=== PATIENT | female | born 1960 | race American Indian/Alaskan Native ===

== ENCOUNTER 2018-03-01 18:07 | Emergency (ER) | payer SELFPAY ==
[2018-03-01] MEDS ORDERED: TORADOL IM ONE (19:52)
--- NOTE | 2018-03-01 19:56 | Emergency Department Report ---
ED ENT HPI - General Chief complaint: Earache Stated complaint: EAR AND TOOTH PAIN Time Seen by Provider: 03/01/18 19:28 Source: patient Mode of arrival: Ambulatory Limitations: No Limitations - History of Present Illness Initial comments: This is a 57-year-old male nontoxic, well nourished in appearance, no acute signs of distress presents to the ED with c/o of right earache and left lower toothache 4 days. Patient denies following up with a dentist. Patient stated that pain radiates from his job to his right ear region. Patient otherwise denies any head trauma. Patient describes toothache as aching level of 8 out of 10. Patient denies any facial swelling. Patient denies any numbness, tingling, fever, chills, headache, stiff neck, abdominal pain, chest pain, shortness of breath. Patient denies any drug allergies or significant past medical history. MD complaint: tooth pain -: days(s) (4) Location: tooth # 1 - pain Severity: mild Quality: aching Consistency: constant Improves with: none Worsens with: none Context- Dental: history of dental caries, poor dental care Associated Symptoms: gum swelling, toothache. denies: fever, cough, pain with swallowing, sore throat, tinnitus, hearing loss, discharge from ear, rhinorrhea - Related Data Previous Rx's Medication Instructions Recorded Last Taken Type Ibuprofen [Motrin] 600 mg PO Q8H PRN #60 tablet 04/22/14 Unknown Rx Cyclobenzaprine [Flexeril 10 MG 10 mg PO TID PRN #30 tablet 05/31/15 Unknown Rx TAB] Docusate Sodium [Colace CAP] 100 mg PO BID #60 capsule 05/31/15 Unknown Rx HYDROcodone/APAP 7.5-325 [[place] 1 each PO Q6HR PRN #20 tablet 05/31/15 Unknown Rx 7.5-325 mg TAB] Sulfamethoxazole/Trimethoprim 1 each PO BID #14 tablet 05/31/15 Unknown Rx [Bactrim DS TAB] metroNIDAZOLE 0.75%(NF) [Metrogel 1 applicatio TP QHS #5 tube 10/28/15 Unknown Rx 0.75% TOPICAL] Amoxicillin/K Clav Tab [Augmentin 1 tab PO Q12HR #20 tab 03/01/18 Unknown Rx 875 mg] Chlorhexidine Mouthwash [Peridex] 15 ml MM BID #1 bottle 03/01/18 Unknown Rx Ibuprofen [Motrin] 600 mg PO Q8H PRN #30 tablet 03/01/18 Unknown Rx traMADol [Ultram] 50 mg PO Q6HR PRN #15 tablet 03/01/18 Unknown Rx Allergies Allergy/AdvReac Type Severity Reaction Status Date / Time No Known Allergies Allergy Unverified 04/22/14 14:48 ED Dental HPI - General Chief complaint: Earache Stated complaint: EAR AND TOOTH PAIN Time Seen by Provider: 03/01/18 19:28 Source: patient Mode of arrival: Ambulatory Limitations: No Limitations - Related Data Previous Rx's Medication Instructions Recorded Last Taken Type Ibuprofen [Motrin] 600 mg PO Q8H PRN #60 tablet 04/22/14 Unknown Rx Cyclobenzaprine [Flexeril 10 MG 10 mg PO TID PRN #30 tablet 05/31/15 Unknown Rx TAB] Docusate Sodium [Colace CAP] 100 mg PO BID #60 capsule 05/31/15 Unknown Rx HYDROcodone/APAP 7.5-325 [[place] 1 each PO Q6HR PRN #20 tablet 05/31/15 Unknown Rx 7.5-325 mg TAB] Sulfamethoxazole/Trimethoprim 1 each PO BID #14 tablet 05/31/15 Unknown Rx [Bactrim DS TAB] metroNIDAZOLE 0.75%(NF) [Metrogel 1 applicatio TP QHS #5 tube 10/28/15 Unknown Rx 0.75% TOPICAL] Amoxicillin/K Clav Tab [Augmentin 1 tab PO Q12HR #20 tab 03/01/18 Unknown Rx 875 mg] Chlorhexidine Mouthwash [Peridex] 15 ml MM BID #1 bottle 03/01/18 Unknown Rx Ibuprofen [Motrin] 600 mg PO Q8H PRN #30 tablet 03/01/18 Unknown Rx traMADol [Ultram] 50 mg PO Q6HR PRN #15 tablet 03/01/18 Unknown Rx Allergies Allergy/AdvReac Type Severity Reaction Status Date / Time No Known Allergies Allergy Unverified 04/22/14 14:48 ED Review of Systems ROS: Stated complaint: EAR AND TOOTH PAIN Other details as noted in HPI Constitutional: denies: chills, fever Eyes: denies: eye pain, eye discharge, vision change ENT: ear pain, dental pain. denies: throat pain Respiratory: denies: cough, shortness of breath, wheezing Cardiovascular: denies: chest pain, palpitations Endocrine: no symptoms reported Gastrointestinal: denies: abdominal pain, nausea, diarrhea Genitourinary: denies: urgency, dysuria, discharge Musculoskeletal: denies: back pain, joint swelling, arthralgia Skin: denies: rash, lesions Neurological: denies: headache, weakness, paresthesias Psychiatric: denies: anxiety, depression Hematological/Lymphatic: denies: easy bleeding, easy bruising ED Past Medical Hx - Past Medical History Previous Medical History?: Yes Additional medical history: chronic back pain - Surgical History Past Surgical History?: Yes Additional Surgical History: c section, hands surgeries. - Social History Smoking Status: Never Smoker Substance Use Type: Non Opiate Pain - Medications Home Medications: Home Medications Medication Instructions Recorded Confirmed Last Taken Type Ibuprofen [Motrin] 600 mg PO Q8H PRN #60 tablet 04/22/14 Unknown Rx Cyclobenzaprine [Flexeril 10 MG 10 mg PO TID PRN #30 tablet 05/31/15 Unknown Rx TAB] Docusate Sodium [Colace CAP] 100 mg PO BID #60 capsule 05/31/15 Unknown Rx HYDROcodone/APAP 7.5-325 [[place] 1 each PO Q6HR PRN #20 tablet 05/31/15 Unknown Rx 7.5-325 mg TAB] Sulfamethoxazole/Trimethoprim 1 each PO BID #14 tablet 05/31/15 Unknown Rx [Bactrim DS TAB] metroNIDAZOLE 0.75%(NF) [Metrogel 1 applicatio TP QHS #5 tube 10/28/15 Unknown Rx 0.75% TOPICAL] Amoxicillin/K Clav Tab [Augmentin 1 tab PO Q12HR #20 tab 03/01/18 Unknown Rx 875 mg] Chlorhexidine Mouthwash [Peridex] 15 ml MM BID #1 bottle 03/01/18 Unknown Rx Ibuprofen [Motrin] 600 mg PO Q8H PRN #30 tablet 03/01/18 Unknown Rx traMADol [Ultram] 50 mg PO Q6HR PRN #15 tablet 03/01/18 Unknown Rx ED Physical Exam - General Limitations: No Limitations General appearance: alert, in no apparent distress - Head Head exam: Present: atraumatic, normocephalic - Eye Eye exam: Present: normal appearance, PERRL, EOMI - ENT ENT exam: Present: mucous membranes moist, TM's normal bilaterally, normal external ear exam - Expanded ENT Exam Expanded Ear exam: Present: normal external inspection Mouth exam: Present: normal external inspection, tongue normal. Absent: drooling, trismus, muffled voice, tongue elevation, laceration Teeth exam: Present: dental caries, fractured tooth #, dental tenderness #, gingival enlargement, other (No facial swelling. ) 1 - Fractured, Dental Tenderness Throat exam: Positive: normal inspection, other (Uvula midline. No abscess or swelling noted. ). Negative: tonsillar erythema, tonsillomegaly, tonsillar exudate, R peritonsillar mass, L peritonsillar mass - Neck Neck exam: Present: normal inspection, full ROM. Absent: tenderness, meningismus, lymphadenopathy - Respiratory Respiratory exam: Present: normal lung sounds bilaterally. Absent: respiratory distress, wheezes, rales, rhonchi, stridor - Cardiovascular Cardiovascular Exam: Present: regular rate, normal rhythm, normal heart sounds. Absent: irregular rhythm, systolic murmur, diastolic murmur, rubs, gallop - GI/Abdominal GI/Abdominal exam: Present: soft, normal bowel sounds - Extremities Exam Extremities exam: Present: normal inspection - Back Exam Back exam: Present: normal inspection, full ROM - Neurological Exam Neurological exam: Present: alert, oriented X3, normal gait - Psychiatric Psychiatric exam: Present: normal affect, normal mood - Skin Skin exam: Present: warm, dry, intact, normal color. Absent: rash ED Course Vital Signs 03/01/18 18:12 Temperature 99.2 F Pulse Rate 103 H Respiratory 20 Rate Blood Pressure 152/75 O2 Sat by Pulse 98 Oximetry - Reevaluation(s) Reevaluation #1: 03/01/18 19:56 Patient is speaking in full sentences with no signs of distress noted. Critical care attestation.: If time is entered above; I have spent that time in minutes in the direct care of this critically ill patient, excluding procedure time. ED Disposition Clinical Impression: Dental caries, Gingivitis Disposition: TO HOME OR SELFCARE Is pt being admited?: No Does the pt Need Aspirin: No Condition: Stable Instructions: Dental Caries (ED), Gingivitis (ED), Tramadol (By mouth), Amoxicillin/Clavulanate Potassium (By mouth) Additional Instructions: Follow-up with a dentist in 3-5 days or if symptoms worsen and continue return to emergency room as soon as possible. Prescriptions: Amoxicillin/K Clav Tab [Augmentin 875 mg] 1 tab PO Q12HR #20 tab Chlorhexidine Mouthwash [Peridex] 15 ml MM BID #1 bottle Ibuprofen [Motrin] 600 mg PO Q8H PRN #30 tablet PRN Reason: Pain traMADol [Ultram] 50 mg PO Q6HR PRN #15 tablet PRN Reason: Pain Referrals: SAM ADDISON MD [Staff Physician] - 3-5 Days PRIMARY CARE, [Referring] - 3-5 Days [facility] [Outside] - 3-5 Days Forms: Work/School Release Form(ED)
[2018-03-01 20:19] VITALS: BP 130/83
== END 2018-03-01 20:17 | disposition home or self-care (01) ==
LOC: ED 18:07
DX: K05.10 Chronic gingivitis, plaque induced (principal)
CPT/HCPCS: 96372; 99282; J1885

== ENCOUNTER 2018-11-09 11:13 | Emergency (ER) | payer SELFPAY ==
[2018-11-09 11:25] VITALS: BP 131/74
--- NOTE | 2018-11-09 13:34 | Emergency Department Report ---
ED Abdominal Pain HPI - General Chief Complaint: Abdominal Pain Stated Complaint: ABD PAIN Time Seen by Provider: 11/09/18 13:13 Source: patient Mode of arrival: Ambulatory Limitations: No Limitations - History of Present Illness Initial Comments: Mrs. Ashley is a very pleasant healthy 58-year-old female without significant past medical history who presents with pelvic suprapubic cramping for the past 6 weeks. Pain has been worse mainly after sexual intercourse. She was concerned for possible urinary tract infection. Symptoms improved with cranberry juice and vinegar. However after intercourse the symptoms returned. She denies vaginal discharge. She denies fever. She's had normal Pap smear within the last year. She has had irregular vaginal bleeding for the last 10 years. MD Complaint: abdominal pain -: Gradual, week(s) (6) Location: suprapubic Radiation: none Severity: mild Quality: cramping Consistency: intermittent Improves With: other (cranberry juice vinegar) Worsens With: other (1-2 days after sexual intercourse) - Related Data Previous Rx's Medication Instructions Recorded Last Taken Type Ibuprofen [Motrin] 600 mg PO Q8H PRN #60 tablet 04/22/14 Unknown Rx Cyclobenzaprine [Flexeril 10 MG 10 mg PO TID PRN #30 tablet 05/31/15 Unknown Rx TAB] Docusate Sodium [Colace CAP] 100 mg PO BID #60 capsule 05/31/15 Unknown Rx HYDROcodone/APAP 7.5-325 [[place] 1 each PO Q6HR PRN #20 tablet 05/31/15 Unknown Rx 7.5-325 mg TAB] Sulfamethoxazole/Trimethoprim 1 each PO BID #14 tablet 05/31/15 Unknown Rx [Bactrim DS TAB] metroNIDAZOLE 0.75%(NF) [Metrogel 1 applicatio TP QHS #5 tube 10/28/15 Unknown Rx 0.75% TOPICAL] Amoxicillin/K Clav Tab [Augmentin 1 tab PO Q12HR #20 tab 03/01/18 Unknown Rx 875 mg] Chlorhexidine Mouthwash [Peridex] 15 ml MM BID #1 bottle 03/01/18 Unknown Rx Ibuprofen [Motrin] 600 mg PO Q8H PRN #30 tablet 03/01/18 Unknown Rx traMADol [Ultram] 50 mg PO Q6HR PRN #15 tablet 03/01/18 Unknown Rx cephALEXin [Keflex] 500 mg PO Q6HR #20 capsule 11/09/18 Unknown Rx Allergies Allergy/AdvReac Type Severity Reaction Status Date / Time No Known Allergies Allergy Verified 11/09/18 11:25 ED Review of Systems ROS: Stated complaint: ABD PAIN Other details as noted in HPI Comment: All other systems reviewed and negative Constitutional: denies: fever, malaise Respiratory: denies: cough Cardiovascular: denies: chest pain ED Past Medical Hx - Past Medical History Previous Medical History?: No Additional medical history: chronic back pain - Surgical History Additional Surgical History: c section, hands surgeries. - Social History Smoking Status: Never Smoker Substance Use Type: Alcohol - Medications Home Medications: Home Medications Medication Instructions Recorded Confirmed Last Taken Type Ibuprofen [Motrin] 600 mg PO Q8H PRN #60 tablet 04/22/14 Unknown Rx Cyclobenzaprine [Flexeril 10 MG 10 mg PO TID PRN #30 tablet 05/31/15 Unknown Rx TAB] Docusate Sodium [Colace CAP] 100 mg PO BID #60 capsule 05/31/15 Unknown Rx HYDROcodone/APAP 7.5-325 [[place] 1 each PO Q6HR PRN #20 tablet 05/31/15 Unknown Rx 7.5-325 mg TAB] Sulfamethoxazole/Trimethoprim 1 each PO BID #14 tablet 05/31/15 Unknown Rx [Bactrim DS TAB] metroNIDAZOLE 0.75%(NF) [Metrogel 1 applicatio TP QHS #5 tube 10/28/15 Unknown Rx 0.75% TOPICAL] Amoxicillin/K Clav Tab [Augmentin 1 tab PO Q12HR #20 tab 03/01/18 Unknown Rx 875 mg] Chlorhexidine Mouthwash [Peridex] 15 ml MM BID #1 bottle 03/01/18 Unknown Rx Ibuprofen [Motrin] 600 mg PO Q8H PRN #30 tablet 03/01/18 Unknown Rx traMADol [Ultram] 50 mg PO Q6HR PRN #15 tablet 03/01/18 Unknown Rx cephALEXin [Keflex] 500 mg PO Q6HR #20 capsule 11/09/18 Unknown Rx ED Physical Exam - General Limitations: No Limitations - Other Other exam information: General: Well-appearing, no acute distress HEENT: anicteric sclera Nose: no rhinorrhea Oropharynx: Clear mucous membranes no lesions Neck: supple, no meningismus Chest: Clear to auscultation bilaterally no rales rhonchi no wheezes Cardiac: Regular rate and rhythm no murmurs no rubs no gallops Abdomen: Soft nontender nondistended positive bowel sounds no guarding Extremities: No cyanosis no clubbing no edema Neuro: Moves all extremities 4, no gross deficits Psychiatric: Alert and oriented 4 normal affect normal judgment normal insight ED Course Vital Signs 11/09/18 11:18 Temperature 97.8 F Pulse Rate 81 Respiratory 18 Rate Blood Pressure 131/74 O2 Sat by Pulse 100 Oximetry ED Medical Decision Making - Medical Decision Making Pelvic pain after intercourse for the past 6 weeks: Differential diagnoses UTI, uterine fibroid, malignancy, PID No indication of appendicitis or colitis. Strongly encouraged follow-up at her primary clinic: [facility]. Will treat for UTI with Keflex. Critical care attestation.: If time is entered above; I have spent that time in minutes in the direct care of this critically ill patient, excluding procedure time. ED Disposition Clinical Impression: Pelvic pain Disposition: DC-01 TO HOME OR SELFCARE Is pt being admited?: No Does the pt Need Aspirin: No Condition: Stable Instructions: Abdominal Pain (ED), Chronic Pelvic Pain in Women (ED) Prescriptions: cephALEXin [Keflex] 500 mg PO Q6HR #20 capsule
== END 2018-11-09 13:59 | disposition home or self-care (01) ==
LOC: ED 11:13
DX: R10.2 Pelvic and perineal pain (principal); G89.29 Other chronic pain; Z98.890 Other specified postprocedural states
CPT/HCPCS: 99282

== ENCOUNTER 2019-09-03 14:52 | Emergency (ER) | payer SELFPAY ==
[2019-09-03 15:54] VITALS: BP 151/86
== END 2019-09-03 22:10 | disposition left against medical advice (07) ==
LOC: ED 14:52
DX: R31.9 Hematuria, unspecified (principal); Z53.21 Procedure and treatment not carried out due to patient leaving prior to being seen by health care provider

== ENCOUNTER 2021-12-25 17:36 | Emergency (ER) | payer SELFPAY ==
[2021-12-25 18:05] VITALS: BP 143/75
--- NOTE | 2021-12-25 19:05 | XRay Report ---
RIGHT HAND 3 VIEW(S) INDICATION / CLINICAL INFORMATION: right hand injury COMPARISON: None available. FINDINGS: BONES / JOINT(S): No acute fracture or subluxation. No significant arthritis. SOFT TISSUES: No significant abnormality. ADDITIONAL FINDINGS: None. Signer Name: Quincy Thornton DO Signed: 12/25/2021 7:01 PM Workstation Name: [id number]
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
[2021-12-25] MEDS ORDERED: KETOROLAC 30 MG/1 ML INJ IM ONE (21:43)
== END 2021-12-25 22:27 | disposition home or self-care (01) ==
LOC: ED 17:36
DX: M25.531 Pain in right wrist (principal); Z98.890 Other specified postprocedural states; V89.2XXA Person injured in unspecified motor-vehicle accident, traffic, initial encounter; Y93.89 Activity, other specified; Y92.89 Other specified places as the place of occurrence of the external cause; Y99.8 Other external cause status
CPT/HCPCS: 73130; 96372; 99283; J1885

== ENCOUNTER 2022-02-21 17:10 | Emergency (ER) | payer OTHER ==
[2022-02-21 19:45] VITALS: BP 154/75
[2022-02-21 21:21] LABS: Bacteria,Urine 1+ /HPF (Negative); Bilirubin,Urine NEG (Negative); Blood,Urine SM (Negative); Color,Urine Yellow (Yellow); Mucus,Urine FEW /HPF; Protein,Urine <15 mg/dL mg/dL (Negative); Urobilinogen,Urine < 2.0 mg/dL (<2.0)
[2022-02-21 21:22] LABS: WBC,Urine > 182.0 /HPF (0.0-6.0)
== END 2022-02-21 23:59 | disposition left against medical advice (07) ==
LOC: ED 17:10
DX: N39.0 Urinary tract infection, site not specified (principal); Z53.21 Procedure and treatment not carried out due to patient leaving prior to being seen by health care provider
CPT/HCPCS: 81001